=== PATIENT | male | born 1970 ===

== ENCOUNTER 2017-05-27 23:28 | Emergency (ER) | payer MEDICAID ==
[~2017-05-27] VITALS: Ht 172.7 cm; Wt 84.0 kg
[2017-05-27 23:33] VITALS: Ht 172.7 cm; Wt 84.0 kg
[2017-05-28] MEDS ORDERED: HYDROCODONE/APAP (5/325) TAB PO STA (00:40)
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
--- NOTE | 2017-05-28 01:18 | RADRPT ---
PROCEDURE: CT abdomen and pelvis without intravenous contrast. CLINICAL INDICATION: Pain. TECHNIQUE: CT of the abdomen/pelvis was performed utilizing axial images with reconstructions in s agittal and coronal planes. The administered radiation dose is CTDI 11.4 mGy, DLP 755 mGy-cm. One or more of the following dose reduction techniques were used: automated exposure control, adjustment o f the mA and/or kV according to patient size and/or use of iterative reconstruction technique. COMPARISON: No pertinent prior examinations were submitted for comparison. FINDINGS: Visualized Chest: There is mild atelectasis in the left greater than right lung bases. Abdomen: The liver, spleen, pancreas, gallbladder,and adrenal glands are unremarkable. The kidneys are without hydronephrosis. No definite urinary calculi are seen. There is no evidence of bowel obstruction. The appendix is normal. No intra-abdominal free air is seen. There is no evidence of intra-abdominal adenopathy or free fluid. Pelvis: There is no evidence of pelvic adenopathy or free fluid. The prostate and bladder are unremarkable. Osseous structures: Unremarkable. IMPRESSION: No acute findings. RPTAT: HIKT .Refugio Stack MD, Date Time Electronically viewed and signed by .Refugio Stack MD, on 05/28/2017 01:18 .T/
[2017-05-28] MEDS ORDERED: HYDR-906 PO (01:24)
[2017-05-28] MEDS ORDERED: NAPR-260 PO (01:24)
== END 2017-05-28 02:20 | disposition home or self-care (01) ==
LOC: FTE 23:28
DX: S49.92XA Unspecified injury of left shoulder and upper arm, initial encounter (principal); S20.212A Contusion of left front wall of thorax, initial encounter; V09.3XXA Pedestrian injured in unspecified traffic accident, initial encounter
CPT/HCPCS: 71010; 73060; 73080; 74176; Z7502; Z7610

== ENCOUNTER 2018-12-12 11:31 | Emergency (ER) | payer SELFPAY ==
[~2018-12-12] VITALS: Wt 81.1 kg
[~2018-12-12 11:31] MED LIST: HYDR-4011 PO; NAPR-985 PO
[2018-12-12 12:07] VITALS: BP 114/71; PULSE 101; RESP 18
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
[2018-12-12] MEDS ORDERED: IBUP-1542 PO (14:21)
== END 2018-12-12 16:06 | disposition left against medical advice (07) ==
LOC: FTE 11:31
DX: S99.912A Unspecified injury of left ankle, initial encounter (principal); V18.4XXA Pedal cycle driver injured in noncollision transport accident in traffic accident, initial encounter; Y92.9 Unspecified place or not applicable
CPT/HCPCS: 73610